=== PATIENT | male | born 1955 | race Caucasian/White ===

== ENCOUNTER 2019-01-28 13:02 | Outpatient (CLI) | payer OTHER ==
[2019-01-28 15:54] VITALS: BP 105/60
--- NOTE | 2019-01-28 15:54 | SLEEP CARE CONSULTATION ---
Information from patient questionnaire entered by Radha Dodson. I have reviewed and concur with the information entered by Radha Dodson. This document represents the service I personally performed and the decisions made by me, Debby Kaufman MD, [facility]. History of Present Illness Reason for Visit: New patient Chief Complaint: reports: Snoring, Observed pauses in breathing Duration of Symptoms: 8-10 YEARS Usual bedtime: 10:00-11:00 PM Time it takes to fall asleep: UNDER A MINUTE Snores at night: Yes Observed to quit breathing while asleep: Yes Sleeps alone due to snoring: Yes Number of times waking at night: 1 Reasons for waking at night: reports: Bathroom Toss, Turn, or Twitch while sleeping: No Recalls having dreams: No (RARELY) Usually gets out of bed at: 7:00-8:00 AM Feels refreshed in the morning: Yes Morning headache: No Sleepy or fatigued during the day: No (NOT USUALLY) Ever fallen asleep while driving: No Takes day naps: No Dreams during day naps: No Prior sleep studies: No Additional HPI information: I had the pleasure of seeing Mr. Robin today regarding the possibility of him having a sleep disorder. As you know, he is a 63 year old gentleman who complains of loud snore and observed apneas. His first noticed the abnormal breathing at night about 8 10 years ago. The patient tells me that he normally goes to bed around 10 - 11 pm, and it takes him approximately < 1 minute to fall asleep. Because of his loud snore, his has to sleep in a separate room. He can recall waking up on the average of 1 - 2 times during the night. Most of the time he wakes up because of having to use the bathroom. He has awakened occasionally because of his own snoring, choking, and having to gasp for air. In the morning he usually gets up out of the bed around 7 - 8 a.m. feeling refreshed and rested. He usually does not have a morning headache. During the day he does not feel sleepy or fatigued. His score on [place] Sleepiness Scale is 7 out of 24. He has never fallen asleep while driving nor has had any accident due to sleepiness. He usually does not take naps during the day. Upon falling asleep during the day he denies having vivid dreams. He has never had sleep paralysis, experienced cataplexy or symptoms of restless leg syndrome. He denies having impaired concentration during the day. - Parasomnia Symptoms Ever been unable to move upon waking from sleep: No Walks in sleep: No Talks in sleep: No Ever acted out dreams in sleep: No Ever felt weak in the knees when startled or emotional: No Bothered by creepy, crawly, restless sensations in legs: No Problems with memory or concentration: No Subjective Initial [place] Sleepiness Scale score: 7 Past Medical History Past Medical History: reports: Other (s/p tonsillectomy) Social History The patient's occupation is a NOT EMPLOYED. Patient is and lives in [place]. Have you smoked in the past 12 months: No Alcohol use: Yes Alcohol amount and frequency: 1-2 DAILY Caffeine use: Yes Caffeine amount and frequency: TEA 2 Family History Family history of sleep disordered breathing: Yes Family Hx Sleep Apnea: Father: Snoring Allergies and Home Medications Known drug allergies: Yes (penicillin) Home medication list reviewed: Yes (Flonase and vitamins) Review of Systems Weight gain over past 5 years: 10 LBS Cardiovascular: denies: high blood pressure, palpitations, chest pain, irregular heart rate or pulse, leg or foot swelling, have to sleep sitting up, other Respiratory: denies: shortness of breath, wheeze, sputum production, chronic cough, other Gastrointestinal: denies: heartburn, difficulty swallowing, nausea, vomitting, diarrhea, abdominal pain, other Urinary: denies: incontinence, frequency, urgency, impotence, other Neurological: denies: headaches, seizure, head trauma, disorientation, speech dysfunction, gait or balance problems, fainting or unconsciousness, other Psychiatric: denies: Attention Deficit Hyperactivity, anxiety, depression, mood disorder, claustrophobia, other Ear/Nose/Throat: reports: tonsillectomy, wisdom teeth removed Immunologic: reports: allergies to food or environment ([employer]LLEN) Physical Exam Vital signs obtained and entered by: Dr. Kaufman Blood Pressure: 105/60 Heart Rate: 75 O2 Saturation: 97 Height: 5 ft 11 in Weight (kg): 83.007 kg Body Mass Index: 25.5 BMI Classification: Overweight Neck circumference: 15.5 HEENT: No craniofacial malformation Nostrils: patent to airflow Turbinates: normal Septum: midline Mouth and throat: narrow oropharynx Soft palate: long Hard palate: normal Uvula: normal Uvula visualization: 25% Mallampati Class III Tongue: normal in size Tonsils: absent bilaterally Chin and jaw: normal size and position Neck: normal w/o lymphadenopathy or thyromegaly Heart: regular rate and rhythm Lungs: clear bilaterally Abdomen: soft, non-tender Extremities: no edema or clubbing Neurologic: intact, no focal deficits Impression and Plan IMPRESSION: 1. Obstructive Sleep Apnea-Hypopnea Syndrome, as suggested by history of loud and irregular snoring, observed cessation of breath while asleep, and occasional daytime hypersomnolence. Narrow oropharynx and obesity are common predisposing factors for obstructive sleep apnea-hypopnea syndrome. Pathophysiology of sleep-disordered breathing was discussed. I recommend proceeding to polysomnography to confirm the diagnosis and to assess severity. If he has significant sleep disordered breathing, a manual CPAP titration study will also be performed to find the optimal treatment pressure. I informed the patient of what the sleep studies involve and after some discussion, he agreed to proceed. Plan: 1. Schedule polysomnography + manual CPAP titration study and return in 1 to 2 weeks after the study to discuss result and initiate therapy. 2. Avoid long distance driving or when feeling sleepy. 3. Avoid alcohol, sedative and muscle relaxant around bedtime. 4. Attempt to lose some weight. I spent 100% of this 15 minute visit face to face with the patient with greater than 50% of this was spent time counseling the patient and coordination of care.
== END 2019-01-28 13:03 | disposition home or self-care (01) ==
LOC: SC 13:02
PROVIDERS: ATTEND Internal Medicine Pulmonary Disease
DX: G47.10 Hypersomnia, unspecified (principal); R06.81 Apnea, not elsewhere classified; R06.83 Snoring
CPT/HCPCS: 99203; 99212

== ENCOUNTER 2019-02-10 19:30 | Outpatient (CLI) | payer OTHER | END 2019-02-10 23:59 | disposition home or self-care (01) | LOC: SC 19:30 | PROVIDERS: ATTEND Internal Medicine Pulmonary Disease | DX: G47.33 Obstructive sleep apnea (adult) (pediatric) (principal) | CPT/HCPCS: 95806 ==

== ENCOUNTER 2019-04-02 08:12 | Outpatient (CLI) | payer OTHER ==
--- NOTE | 2019-04-02 09:15 | SLEEP CARE CONSULTATION ---
Information from patient questionnaire entered by Radha Dodson. I have reviewed and concur with the information entered by Radha Dodson. This document represents the service I personally performed and the decisions made by me, Michelle Cooper RN, MSN, [employer]. History of Present Illness Initial [place] Sleepiness Scale score: 7 Current [place] Sleepiness Scale score: 7 Additional HPI information: SVETLANA OLVERA returns with spouse for follow up of the recently performed home sleep study ( HST). I explained the pathophysiology behind obstructive sleep apnea. We then spent quite a bit of time discussing different treatment options. For mild obstructive sleep apnea, surgery and oral appliance are alternatives to nasal CPAP therapy but in moderate or severe cases, nasal CPAP is the most effective and reliable treatment. Because apnea is primarily in supine position, then positional management therapy could be effective. Methods discussed such as positioning with pillows, using a T-shirt with tennis balls in the back, and shown commercial products that have a pillow format on back to prevent supine sleep. I reviewed the impact of weight changes on sleep apnea and strongly recommended losing weight. I explained how CPAP machine works with sample devices Respironics Dreamstation and ResCLEAR [id number] and what to expect when using the machine. I also showed patient mask styles and answered several questions by him and his spouse. I also discussed options of starting CPAP with manual titration study or autoCPAP and the compliance and follow up process to ensure treatment effective. For oral appliance optiosn, patient was given a list of accredited dentists and one non-accredited dentist in [facility] to call for a consult. Patient advised to check insurance to see if oral appliance is covered. Some dentists do not take Medicare. If he chooses this method , a prescription will be made. I will have patient follow up in 3 months to check effectiveness of treatment. If reduction of symptoms and comfortable with treatment, a polysomnography will be ordered using the oral appliance to check efficacy of treatment. After some discussion, the patient opted to discuss options and contact this office. Patient counseled not drink alcohol less than 4 hours before bedtime as it can increase snoring and apnea. Patient was cautioned about risks of drowsy driving until sleepiness symptoms resolve. Patient denies drowsy driving. [facility] patient education on snoring and sleep apnea and Non Pap treatment pamphlets reviewed and given to patient. Sleep Study - Polysomnography Polysomnography findings: Home sleep study results. SLEEP TIME AND EFFICIENCY: The sleep study recording began at 09:36:51 PM and ended at 07:24:24 AM. Total recording time was 587.5 minutes. The total sleep time was 524.5 minutes. The sleep efficiency was 89.3 percent. The patient spent 208.7 minutes supine, and spent 315.8 minutes non-supine. The patients own estimate of sleep time was 8.00 hours. RESPIRATORY DATA: The AHI in this report is indexed to sleep time based on actigraphy. The AASM defines this as NATHALIE. The AHI on this type 3 Home Sleep Study may understate the AHI determined on a type 1 or 2 study, since EEG is not monitored resulting in the inability to score non-desaturating hypopneas. Based on 4% Calculation: The AHI4% calculation of 18.3 per hour of recording time was based on a total of 148 scored apneas and 12 scored hypopneas with 4% desaturations. Supine AHI4%: 44.0 per hour. Non-supine AHI4%: 1.3 per hour. Oxygen Summary: Patient's baseline O2 saturation was 96.1 %. The patient spent 0.6 minutes at an oxygen saturation less than 90%, and 0.0 minutes less than 85%. The desaturation index was 6.4 events per hour sleep time. The lowest saturation was 87.9 %. SNORING: The percent of the study time spent snoring was 1.6 %. The Snoring Count was 282 . Allergies and Home Medications Known drug allergies: Yes (penicillin) Home medication list reviewed: Yes (no medications at this time - uses meds for seasonal allergies. ) Review of Systems Review of systems same as previous: Yes Physical Exam Blood Pressure: 132/78 Cuff size: long Heart Rate: 80 O2 Saturation: 96 Height: 5 ft 11 in Weight: 191 lb Body Mass Index: 26.6 BMI Classification: Overweight Impression and Plan 1. Obstructive Sleep Apnea-Hypopnea Syndrome, moderate, with lowest oxygen saturation of 87.9%. Probably this is the cause of the patients symptoms of occasional excessive daytime sleepiness. The pathophysiology of obstructive sl eep apnea and associated health risks of cardiac disease and stroke if not treated were also discussed. As mentioned above, the patient will consider his treatment options and contact this office. Because the apnea is more severe supine, I instructed to avoid sleeping supine using pillow positioning until able to start CPAP use. * Call office with choice of treatment. * Attempt to lose weight. * Avoid alcohol consumption near bedtime. * Avoid supine sleep until using CPAP. * The patient is again cautioned about driving until sleepiness completely resolves. * I spent 100% of this 43 minute visit face to face with the patient with greater than 50% of this was spent time counseling the patient and coordination of care. Patient and spouse had many questions about treatment options.
[2019-04-02 09:16] VITALS: BP 132/78
== END 2019-04-02 08:13 | disposition home or self-care (01) ==
LOC: SC 08:12
PROVIDERS: ATTEND Nurse Practitioner Family
DX: G47.33 Obstructive sleep apnea (adult) (pediatric) (principal)
CPT/HCPCS: 99212; 99215

== ENCOUNTER 2021-02-03 14:07 | Outpatient (CLI) | payer MEDICARE ==
--- NOTE | 2021-02-03 16:50 | XRAY Report ---
PROCEDURE: Hand 3 View BILAT INDICATIONS: DIP DEFORMITY TECHNIQUE: 3 views of the hand(s) acquired. COMPARISON: None FINDINGS: Bones: No fractures or dislocations. No suspicious bony lesions. There are scattered areas of IP d egenerative narrowing most severe at the second left DIP joint as well as second third and fifth righ t DIP joints. Mild scattered PIP joint narrowing is present. Minimal scattered areas of subchondral l ucency are also present bilaterally at the IP joints. Soft tissues: No suspicious soft tissue calcifications. 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 Areas of subchondral lucency are present ov erall nonspecific. These could represent subchondral cysts. However, in appropriate clinical and labo ratory circumstances, erosive arthritides cannot be definitively excluded. Reviewed by: Nora Esposito MD on 02/03/2021 4:49 PM PDT Approved by: Nora Esposito MD on 02/03/2021 4:49 PM PDT Station ID: [id number]
== END 2021-02-03 14:08 | disposition home or self-care (01) ==
LOC: DI.N 14:07
PROVIDERS: ATTEND Internal Medicine
DX: M19.042 Primary osteoarthritis, left hand (principal); M19.041 Primary osteoarthritis, right hand